=== PATIENT | male | born 1985 | race African-American/Black ===

== ENCOUNTER 2019-02-27 22:30 | Emergency (ER) | payer SELFPAY ==
[~2019-02-27] VITALS: Ht 185.4 cm; Wt 129.0 kg
[2019-02-28 02:36] VITALS: BP 147/84
== END 2019-02-28 02:29 | disposition left against medical advice (07) | DRG 153 ==
LOC: ED 22:30
DX: J06.9 Acute upper respiratory infection, unspecified (principal)